=== PATIENT | female | born 1965 | race Caucasian/White ===

== ENCOUNTER 2016-10-17 13:23 | Emergency (ER) | payer BC ==
[2016-10-17 13:30] VITALS: BP 102/67; BMI 31.0
--- NOTE | 2016-10-17 17:32 | DR.GENAD ---
HPI - PCP Primary Care Physician: Tanesha - Complaint/Symptoms Chief Complaint:: PT HAS BEEN ON HER PERIOD FOR THREE WEEKS NOW SHE HAS STARTED FEELING WEAK AND VERY DIZZY - Source History Provided: Patient - Mode of Arrival Mode of Arrival: Ambulatory - Timing Onset of Chief Complaint: 09/21/16 PMH - PMH Past Medical History: Yes Past Medical History: Anxiety Past Surgical History: Yes Surgical History: - Family History History of Family Medical Conditions: Yes Family Medical History: Diabetes Mellitus - Social History Does patient currently use any type of tobacco product: No Have you used tobacco products in the last 12 months: No Type of Tobacco Use: None Does any household member use tobacco: No Alcohol Use: None Do you use any recreational Drugs:: No Lives With: Family Lives Where: Home - infectious screening In the last 2 months have you had wt loss of >10#?: NO Have you had fever, night sweats or hemotysis?: No Have you traveled outside the country in the last 6 months?: No Isolation: Standard PE - Vital Signs Vitals: Temperature 98.4 F Pulse Rate 100 Respiratory Rate 18 Blood Pressure 102/67 O2 Sat by Pulse Oximetry 100 - Discharge Plan Disposition: LWBS After Triage Condition: Stable - Follow ups/Referrals Follow ups/Referrals: LEDA PIKE [Primary Care Provider] - 3 days - Instructions
== END 2016-10-17 14:49 | disposition left against medical advice (07) ==
LOC: ER 13:43
DX: R42 Dizziness and giddiness (principal)
CPT/HCPCS: 99281